=== PATIENT | female | born 1995 | race African-American/Black ===

== ENCOUNTER 2018-02-03 21:23 | Emergency (ER) | payer OTHER ==
[~2018-02-03] VITALS: Ht 160 cm; Wt 77.6 kg
--- NOTE | 2018-02-03 21:36 | NUR ---
Pt BIBSELF C/O LOWER PELVIC PAIN & UPPER BACK PAIN. WANTED TO COME TO THE ER TO SEE IF SHE HAS A UTI. VS STABLE. Pt IS WAITING COMFORTABLY IN BED. NO S/S OF ACUTE DISTRESS OR SOB NOTED.
--- NOTE | 2018-02-03 21:50 | NUR ---
URINE SAMPLE COLLECTED
[2018-02-03 22:56] LABS: APPEARANCE,URINE SL CLOUDY (CLEAR); BILIRUBIN,URINE NEGATIVE (NEGATIVE); BLOOD, URINE NEGATIVE Ery/uL (NEGATIVE); COLOR,URINE YELLOW (YELLOW); KETONES,URINE NEGATIVE (NEGATIVE); LEUKOCYTE ESTERASE ,URINE NEGATIVE (NEGATIVE); NITRITE, URINE NEGATIVE (NEGATIVE); PH,URINE 6.5 (5.0-8.0); PROTEIN,URINE NEGATIVE (NEGATIVE); UGLUCOSE 3+ mg/dL (NEGATIVE); UROBILINOGEN,URINE 0.2 EU/dL (0.2)
[2018-02-03 23:04] LABS: BACTERIA,URINE None seen /HPF (None Seen); RBC,URINE NONE SEEN /HPF (0-2); SQUAMOUS EPITHELIAL CELL,UR Moderate /HPF (None Seen); WBC,URINE 0-2 /HPF (0-3)
[2018-02-03 23:35] VITALS: BP 127/62
--- NOTE | 2018-02-03 23:35 | NUR ---
Patient discharged to home in stable condition. Written and verbal after care instructions given. Patient verbalizes understanding of instruction. ambulatory with a steady gait
== END 2018-02-03 23:36 | disposition home or self-care (01) ==
LOC: ER 21:27
DX: R35.0 Frequency of micturition (principal)
CPT/HCPCS: 81000-TC; 84703-TC; A4606; Z7610